=== PATIENT | male | born 1960 | race Caucasian/White ===

== ENCOUNTER → 2021-07-24 | Outpatient (CLI) | payer OTHER ==
[~2021-07-24] MED LIST: ALLOPURINOL 10100 M1 PO; ASA81BEC PO; BACTRIM DS TAB1 EAC1 PO; BLOOD PRESSURE PILL; HYDROXYZINE HCL25 M2 TOP; KEFLEX500 M2 PO; MICARDIS40 MG PO; MUCINEX600 MG PO; PEPCID20 MG PO; PREDNISONE 10 M10 MG PO; VITAMIN C500 M1 PO; VITAMIN D350 MC3 PO; ZINC50 MG PO; ZYRTEC10 M5 PO
[2021-07-24 12:38] LABS: HEMATOCRIT 45.1 % (42.0-52.0); HEMOGLOBIN 15.3 gm/dL (14.0-18.0); MCH 30.3 pg (26.0-34.0); MCHC 33.9 g/dL (28.0-37.0); MCV 89.2 fL (80.0-100.0); RBC 5.05 mil/uL (4.50-6.00); RDW 12.9 % (10.5-14.5); WBC 5.1 thou/uL (4.0-11.0)
[2021-07-24 12:49] LABS: ALBUMIN 4.1 g/dL (3.4-5.0); CALCIUM 9.3 mg/dL (8.5-10.1)
[2021-07-24 12:50] LABS: INR 0.95; PROTIME 10.4 Seconds (10.5-12.1)
[2021-07-24 13:08] LABS: URINE BILIRUBIN NEGATIVE (Negative); URINE BLOOD NEGATIVE (Negative); URINE CLARITY CLEAR; URINE COLOR YELLOW; URINE GLUCOSE-RANDOM* NEGATIVE (Negative); URINE KETONES NEGATIVE (Negative); URINE LEUKOCYTES-REFLEX NEGATIVE (Negative); URINE NITRITE-REFLEX NEGATIVE (Negative); URINE PROTEIN (DIPSTICK) NEGATIVE (Negative); URINE UROBILINOGEN 0.2 E.U./dl (0.2-1.0)
--- NOTE | 2021-07-24 15:29 | EKG ---
[address] [address] ELECTROCARDIOGRAM REPORT Name: ИВАН FREED Room #: 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: PEDRO BRUNNER : 1960 Requested By: Sherif Bergeron Order Number: [id number] MD: Иван Oconnor Measurements Intervals [place] Rate: 66 P: 70 VT: 154 QRS: 79 QRSD: 103 T: 35 QT: 408 QTc: 428 Interpretive Statements Sinus arrhythmia Probable left ventricular hypertrophy No previous ECG available for comparison Electronically Signed On 07-24-2021 15:29:40 [employer] by Иван Oconnor [email or web address] <ELECTRONICALLY SIGNED> By: Иван Oconnor MD, [facility] 07/24/21 1529 1230 1230 Иван Oconnor MD, FACC /EPI
== END ==
LOC: PAC 11:53
PROVIDERS: ATTEND Orthopaedic Surgery
DX: M16.11 Unilateral primary osteoarthritis, right hip (principal)

== ENCOUNTER → 2021-07-30 | Outpatient (CLI) | payer OTHER | LOC: LAB 07-24 13:14 | PROVIDERS: ATTEND Student in an Organized Health Care Education/Training Program | DX: U07.1 COVID-19 (principal); Z01.812 Encounter for preprocedural laboratory examination ==

== ENCOUNTER → 2021-08-31 | Outpatient (CLI) | payer OTHER | LOC: LAB 11:39 | PROVIDERS: ATTEND Orthopaedic Surgery | DX: M16.11 Unilateral primary osteoarthritis, right hip (principal) ==

== ENCOUNTER 2021-09-03 06:15 | Observation (INO) | payer OTHER ==
[~2021-09-03] VITALS: Ht 185.4 cm; Wt 102.1 kg
[2021-09-03 09:27] VITALS: BP 141/84
[2021-09-03 13:05] VITALS: BP 141/84
== END 2021-09-03 13:05 | disposition home or self-care (01) ==
LOC: OR 06:15 → TBA 10:07 → OR 10:28 → TBA 13:05 → OR 16:03
PROVIDERS: ADMIT Orthopaedic Surgery; ATTEND Orthopaedic Surgery
DX: M16.11 Unilateral primary osteoarthritis, right hip (principal); M47.816 Spondylosis without myelopathy or radiculopathy, lumbar region; Z79.899 Other long term (current) drug therapy
CPT/HCPCS: 50010; 50101; 50382; 50414; 50855; 52304; 53078; 53368; 56524; 56527; 56528; 57095; 57103; 58637; 58959; 62110; 62900; 70005